=== PATIENT | male | born 1960 | race Caucasian/White ===

== ENCOUNTER 2018-02-23 20:27 | Emergency (ER) | payer OTHER ==
[~2018-02-23] VITALS: Ht 188 cm; Wt 93.0 kg
--- NOTE | 2018-02-23 21:43 | ED GI/GU/ABDOMINAL COMPLAINT ---
History of Present Illness General Chief Complaint: General Adult Stated Complaint: ?FOOD POISONING,VOMITING,NAUSEA,HEADACHE,"CHILLS" Source: patient, family, old records Exam Limitations: no limitations Vital Signs & Intake/Output Vital Signs & Intake/Output Vital Signs Date Time Temp Pulse Resp B/P B/P Pulse O2 O2 Flow FiO2 Mean Ox Delivery Rate 02/24 2228 98.1 60 20 108/63 97 Room Air 02/23 2030 96.7 69 18 143/71 97 Room Air Allergies Coded Allergies: No Known Allergies (02/23/18) Reconcile Medications No Known Home Medications Triage Note: PT TO TRIAGE C/O ?FOOD POISONING SINCE LAST NIGHT. PT STATES HAD TAKE OUT AND BEGAN VOMITING APPROX 9PM ALL NIGHT AND HAS SINCE SUBSIDED BUT C/O CHILLS/FEVER. AFEBRILE IN TRIAGE, TOOK MOTRIN APPROX 3PM. DENIES DIARRHEA. Triage Nurses Notes Reviewed? yes Onset: 1 day Duration: day(s):, better, continues in ED Timing: recent history Quality/Severity: aching, moderate, vomiting Location: generalized abdomen Radiation: no radiation Activities at Onset: eating (Occitan chicken) Prior Abdominal Problems: none Past Sexual History: Unobtainable at this time Modifying Factors: Improves With: vomiting. Worsens With: eating. Associated Symptoms: abdominal pain, loss of appetite, nausea/vomiting HPI: 1 day prior to admission after eating Occitan chicken with pomegranate sauce he developed abdominal discomfort nausea vomiting anorexia. He also complains of chills with low-grade temperature of 99.9. 10 hours prior to admission he is been able to tolerate Gatorade tea and toast. He denies fever chest pain cough shortness of breath headache dysuria rash bleeding ill contacts. Past History Travel History Traveled to [place] past 21 day No Medical History Any Pertinent Medical History? 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 No Review of Systems Review of Systems Constitutional: Reports: see HPI, chills, malaise. EENTM: Reports: no symptoms. Respiratory: Reports: no symptoms. Cardiovascular: Reports: no symptoms. GI: Reports: see HPI, abdominal pain, nausea, vomiting. Genitourinary: Reports: no symptoms. Musculoskeletal: Reports: no symptoms. Skin: Reports: no symptoms. Neurological/Psychological: Reports: no symptoms. Hematologic/Endocrine: Reports: no symptoms. Immunologic/Allergic: Reports: no symptoms. All Other Systems: Reviewed and Negative Physical Exam Physical Exam General Appearance: well developed/nourished, alert, awake, comfortable Head: atraumatic, normal appearance Eyes: Bilateral: normal appearance, PERRL, EOMI, normal inspection. Ears, Nose, Throat, Mouth: hearing grossly normal, moist mucous membrane Neck: normal inspection, supple, full range of motion, normal alignment Respiratory: normal breath sounds, chest non-tender, no respiratory distress, quiet respiration, lungs clear Cardiovascular: regular rate/rhythm, normal peripheral pulses, norml femoral pulses equa Peripheral Pulses: 4+ carotid (R), 4+ carotid (L) Gastrointestinal: normal bowel sounds, soft, non-tender, no organomegaly Male Genitals: normal genitalia Back: normal inspection, normal range of motion, no vertebral tenderness Extremities: normal range of motion, no ligament instability Neurologic/Psych: no motor/sensory deficits, awake, alert, oriented x 3, normal gait, normal mood/affect, 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 No Sepsis Present: No Sepsis Focused Exam Completed? No Progress Differential Diagnosis: biliary colic, gastritis, pancreatitis Plan of Care: Orders Procedure Date/time Status MAGNESIUM 02/23 2121 Complete LIPASE 02/23 2121 Complete COMPREHENSIVE METABOLIC PANEL 02/23 2121 Complete CBC WITHOUT DIFFERENTIAL 02/23 2121 Complete Laboratory Tests 02/23/182144: Anion Gap 8, Estimated GFR > 60, BUN/Creatinine Ratio 26.0 H, Glucose 96, Calcium 8.8, Magnesium 2.0, Total Bilirubin 1.0, AST 17, ALT 20 L, Alkaline Phosphatase 50, Total Protein 7.0, Albumin 4.1, Globulin 2.9, Albumin/Globulin Ratio 1.4, Lipase 44, CBC w Diff NO MAN DIFF REQ, RBC 4.97, MCV 86.4, MCH 28.5, MCHC 33.0, RDW 13.6, MPV 8.4, Gran % 73.5, Lymphocytes % 15.0 L, Monocytes % 9.3, Eosinophils % 2.0, Basophils % 0.2, Absolute Granulocytes 3.8, Absolute Lymphocytes 0.8 L, Absolute Monocytes 0.5, Absolute Eosinophils 0.1, Absolute Basophils 0 Initial ED EKG: none Departure Departure Time of Disposition: 2304 Disposition: HOME OR SELF CARE Condition: Stable Clinical Impression Primary Impression: Nausea and vomiting in adult Secondary Impressions: Dehydration syndrome Referrals: Froylan ARCHULETA,Nohemy Garza (PCP/Family) Additional Instructions: Clear liquids for 12-24 hours until better Departure Forms: Customer Survey General Discharge Information Prescriptions: Current Visit Scripts Ondansetron (Zofran Odt) 1 TAB SL TID PRN nausea #10 TAB Hyoscyamine Sulfate (Levsin-Sl) 1-2 TAB SL Q4P PRN abdominal cramps #30 TAB Loperamide HCl (Imodium A-D) 0 PO SEE ADMIN CRITERIA PRN diarrhea #24 TAB 1 tab after each loose stool up to 7 per day
[2018-02-23 21:55] LABS: ABSOLUTE BASOPHIL COUNT 0 /CUMM (0.0-0.2); ABSOLUTE EOSINOPHIL COUNT 0.1 /CUMM (0.0-0.7); ABSOLUTE GRANULOCYTE CT 3.8 /CUMM (1.4-6.5); ABSOLUTE LYMPH COUNT 0.8 /CUMM (1.2-3.4); ABSOLUTE MONOCYTE COUNT 0.5 /CUMM (0.10-0.60); BASOPHIL % 0.2 % (0.0-2.0); GRANULOCYTE % 73.5 % (42.2-75.2); HEMATOCRIT 42.9 % (42-52); MEAN CORPUSCULAR HGB 28.5 PG (27.0-31.0); MEAN CORPUSCULAR VOLUME 86.4 FL (80.0-94.0); MEAN PLATELET VOLUME 8.4 FL (7.4-10.4); PLATELET COUNT 209 /CUMM (130-400); RBC DISTRIBUTION WIDTH 13.6 % (11.5-14.5); RED BLOOD CELL CT 4.97 /CUMM (4.70-6.10); WHITE BLOOD CELL COUNT 5.2 /CUMM (4.8-10.8)
[2018-02-23] MEDS ORDERED: IMODIUM A-D2 M1 PO (23:06)
[2018-02-23] MEDS ORDERED: ZOFRAN ODT4 M1 SL (23:06)
[2018-02-23] MEDS ORDERED: LEVSIN-SL0.125 MG SL (23:06)
[2018-02-23 23:30] VITALS: BP 126/87
== END 2018-02-23 23:30 ==
LOC: ERH 20:27
PROVIDERS: Emergency Medicine
DX: R11.2 Nausea with vomiting, unspecified (principal); E86.0 Dehydration
CPT/HCPCS: 96361; 96374; 96375; J2405